=== PATIENT | female | born 1980 | race Caucasian/White ===

== ENCOUNTER 2016-11-23 18:10 | Emergency (ER) | payer MEDICAID ==
[~2016-11-23] VITALS: Ht 160 cm; Wt 53.0 kg
[~2016-11-23 18:10] MED LIST: ACET1TAB40 PO
[2016-11-23 18:12] VITALS: Ht 160 cm; Wt 53.0 kg
[2016-11-23 19:06] LABS: ADD SCAN DIFF NO
[2016-11-23 19:09] LABS: BASOPHILS % 0.4 % (0.0-2.0); EOSINOPHILS # 0.1 10^3/ul (0.0-0.5); EOSINOPHILS % 1.6 % (0.0-7.0); HEMATOCRIT 43.5 % (37.0-47.0); HEMOGLOBIN 13.8 g/dl (12.0-16.0); LYMPHOCYTES # 2.4 10^3/ul (0.8-2.9); LYMPHOCYTES % 35.3 % (15.0-51.0); MEAN CORPUSCULAR HEMOGLOBIN 27.9 pg (29.0-33.0); MEAN CORPUSCULAR HGB CONC 31.7 g/dl (32.0-37.0); MEAN CORPUSCULAR VOLUME 88.1 fl (82.0-101.0); MEAN PLATELET VOLUME 10.9 fl (7.4-10.4); MONOCYTE # 0.5 10^3/ul (0.3-0.9); NEUTROPHIL # 3.7 10^3/ul (1.6-7.5); NEUTROPHILS % 54.6 % (39.0-77.0); PLATELET COUNT 244 10^3/UL (140-415); RED BLOOD COUNT 4.94 10^6/ul (4.20-5.40); RED CELL DISTRIBUTION WIDTH 12.7 % (11.5-14.5); WHITE BLOOD COUNT 6.7 10^3/ul (4.8-10.8)
[2016-11-23 19:22] LABS: ADD UMIC YES; UR BILIRUBIN (Dip) NEGATIVE (NEGATIVE); UR BLOOD (Dip) 3+ (NEGATIVE); UR COLOR LT. YELLOW (YELLOW); UR GLUCOSE (Dip) NEGATIVE (NEGATIVE); UR KETONES (Dip) NEGATIVE (NEGATIVE); UR LEUKOCYTE ESTERASE (Dip) NEGATIVE (NEGATIVE); UR NITRITE (Dip) NEGATIVE (NEGATIVE); UR TOTAL PROTEIN (Dip) NEGATIVE (NEGATIVE); UR UROBILINOGEN (Dip) 0.2 E.U./dL (0.1-1.0)
[2016-11-23 19:26] LABS: ALBUMIN 5.1 g/dl (3.3-4.9); ALBUMIN/GLOBULIN RATIO 1.75; BILIRUBIN,INDIRECT 0.4 mg/dl (0-1.1); BILIRUBIN,TOTAL 0.4 mg/dl (0.2-1.3); CALCIUM 9.6 mg/dl (8.4-10.2); CREATININE 0.76 mg/dl (0.44-1.00); POTASSIUM 3.7 mmol/L (3.5-5.1)
[2016-11-23 19:33] LABS: D-DIMER < 220.00 ng/ml (<460)
[2016-11-23 19:35] LABS: UR CLARITY HAZY (CLEAR)
--- NOTE | 2016-11-23 19:38 | RADRPT ---
PROCEDURE: XR Chest. CLINICAL INDICATION: chest pain, abdominal pain TECHNIQUE: Single frontal view of the chest was obtained COMPARISON: None FINDINGS: The heart and mediastinum are within normal limits. The lungs are clear. There is no pleural effusion or pneumothorax. RPTAT: AA IMPRESSION: No acute disease. .Nick Brownlee MD, MD Date Time Electronically viewed and signed by .Nick Brownlee MD, on 11/23/2016 19:38 .S/
[2016-11-23] MEDS ORDERED: SOD CHLORIDE 0.9% 100 ML ONE (19:41)
[2016-11-23] MEDS ORDERED: IOHEXOL 300MG/ML 150 ML BTL ONE (19:41)
[2016-11-23 19:43] LABS: UR SQUAMOUS EPITHELIAL CELL MODERATE; URINE RBCS 0-2 /HPF (0)
[2016-11-23 19:44] LABS: BACTERIA,URINE FEW
--- NOTE | 2016-11-23 20:07 | RADRPT ---
PROCEDURE: CT Chest. CLINICAL INDICATION: Dyspnea and shortness of breath TECHNIQUE: CT scan of the chest with contrast was performed on the [facility]umetric [address] [facility] The patient was scanned following the uncomplicated intravenous administration of 100 cc of Omn ipaque-300 intravenous contrast. Coronal and sagittal reformatted images were obtained from the axia l source images. The CTDI is 5.25 mGy and the DLP is 374.11 mGy-cm. COMPARISON: None. FINDINGS: The lungs are clear. No focal opacification, effusion, pneumothorax, edema, or nodules are seen. T here is no acute infiltrate. The mediastinum is unremarkable without evidence for mass or lymphaden opathy. The vascular structures of the mediastinum are normal in course and caliber. The heart siz e is normal without evidence for pericardial thickening or effusion. The axillary regions, subpecto ral regions, and supraclavicular regions are all unremarkable. The osseous structures are intact. N o osteolytic or osteoblastic lesion is detected. IMPRESSION: 1. Unremarkable CT scan of the chest. 2. No mass, lymphadenopathy, or focal acute infiltrate is identified. RPTAT: HPNM Physician Doris Date Time Electronically viewed and signed by Physician Doris on 11/23/2016 20:06 /
--- NOTE | 2016-11-23 22:59 | RADRPT ---
PROCEDURE: CT abdomen and pelvis with intravenous contrast. CLINICAL INDICATION: Pain. TECHNIQUE: CT of the abdomen/pelvis was performed utilizing axial images with reconstructions in s agittal and coronal planes after uneventful administration of 100 cc Omnipaque 300. The administered radiation dose is CTDI 5.3 mGy, DLP 374 mGy-cm. COMPARISON: 06/24/2015 FINDINGS: Visualized Chest: Is refer to the separately dictated examination of the chest. Abdomen: The liver, spleen, pancreas, gallbladder,and adrenal glands are unremarkable. The kidneys are without hydronephrosis. No definite urinary calculi are seen. There is no evidence of bowel obstruction. The appendix is normal. No intra-abdominal free air is seen. There is no evidence of intra-abdominal adenopathy or free fluid. Pelvis: There is no evidence of pelvic adenopathy. The uterus and ovaries are without enlargement. The uri nary bladder is unremarkable. There is a small amount of pelvic free fluid. Osseous structures: Unremarkable. IMPRESSION: No acute findings. RPTAT: HIKT .Oswaldo Calloway MD, Date Time Electronically viewed and signed by .Oswaldo Calloway MD, on 11/23/2016 22:59 .T/
[2016-11-23] MEDS ORDERED: RANI150T9 PO (23:06)
[2016-11-23] MEDS ORDERED: OMEP20CA16 PO (23:06)
--- NOTE | 2016-11-23 23:10 | ERD ---
ER Documentation Chief Complaint Date/Time DATE: 11/23/16 TIME: 23:08 Chief Complaint Complains of SOB x 3 weeks HPI 32-year-old female otherwise healthy complains of intermittent shortness breath associated with eating for the past 3 weeks. She states that she is able to feed no more than upon fall, and reports epigastric abdominal pain that goes to her chest, and has become full easily. She states that it has made her feel short of breath. She denies any fevers, chills, vomiting. She denies night sweats or unintended weight loss. ROS All systems reviewed and are negative except as per history of present illness. Medications Home Meds Active Scripts Omeprazole* (Omeprazole*) 20 Mg Capsule.dr, 20 MG PO BID, #60 Prov:LEANDRO BARRAGAN PA-C 11/23/16 Ranitidine Hcl* (Zantac*) 150 Mg Tablet, 150 MG PO BID Y for EPIGASTRIC PAIN, # 30 TAB Prov:LEANDRO BARRAGAN PA-C 11/23/16 Acetaminophen-Codeine* (Acetaminophen-Cod #3*) 300-30 Mg Tab, 1 TAB PO Q4H Y for PAIN, #15 TAB Prov:RANDEE AVITIA NP 06/24/15 Allergies Allergies: Coded Allergies: No Known Allergy (Unverified , 11/23/16) PMhx/Soc Medical and Surgical Hx: pt denies Medical Hx, pt denies Surgical Hx Hx Alcohol Use: No Hx Substance Use: No Hx Tobacco Use: No Physical Exam Vitals Vital Signs Date Time Temp Pulse Resp B/P Pulse Ox O2 Delivery O2 Flow Rate FiO2 11/23/16 18:12 98.0 95 20 139/65 98 Physical Exam General: Well-developed, well-nourished. The patient appears in no acute distress. HEENT: Head is normocephalic, atraumatic. No scleral icterus. Pupils are equal , round, and reactive. Oral mucous membranes are moist. No pharyngeal erythema. , No trismus, no voice changes or drooling. Throat is clear. Neck: Supple. Nontender. Lungs: Clear to auscultation. Normal air movement. Heart: Regular rate and rhythm. S1 and S2 are normal. No murmurs, gallops, or rubs. Abdomen: Soft, nontender, nondistended. Bowel sounds are normoactive. Extremities: No clubbing or cyanosis. Normal pulses. Moving extremities x 4. No weakness. Neurologic: Alert and oriented 3. No focal deficits. Skin: Normal turgor. No rash or lesions. Result Diagram: 11/23/16189911/23/161899 Results 24 hrs Laboratory Tests Test 11/23/16 19:00 White Blood Count 6.710^3/ul Red Blood Count 4.9410^6/ul Hemoglobin 13.8g/dl Hematocrit 43.5% Mean Corpuscular Volume 88.1fl Mean Corpuscular Hemoglobin 27.9pg Mean Corpuscular Hemoglobin Concent 31.7g/dl Red Cell Distribution Width 12.7% Platelet Count 88672^3/UL Mean Platelet Volume 10.9fl Neutrophils % 54.6% Lymphocytes % 35.3% Monocytes % 8.0% Eosinophils % 1.6% Basophils % 0.4% Nucleated Red Blood Cells % 0.0/100WBC Neutrophils # 3.710^3/ul Lymphocytes # 2.410^3/ul Monocytes # 0.510^3/ul Eosinophils # 0.110^3/ul Basophils # 0.010^3/ul Nucleated Red Blood Cells # 0.010^3/ul D-Dimer < 220.00ng/ml D-Dimer Comment Urine Color LT. YELLOW Urine Clarity HAZY Urine pH 7.0 Urine Specific [place] <=1.005 Urine Ketones NEGATIVE Urine Nitrite NEGATIVE Urine Bilirubin NEGATIVE Urine Urobilinogen 0.2 E.U./dL Urine Leukocyte Esterase NEGATIVE Urine Microscopic RBC 0-2/HPF Urine Microscopic WBC 5-10/HPF Urine Squamous Epithelial Cells MODERATE Urine Amorphous Urates MODERATE Urine Bacteria FEW Urine Hemoglobin 3+ Urine Glucose NEGATIVE% Urine Total Protein NEGATIVE Sodium Level 142mmol/L Potassium Level 3.7mmol/L Chloride Level 106mmol/L Carbon Dioxide Level 26mmol/L Anion Gap 14 Blood Urea Nitrogen 16mg/dl Creatinine 0.76mg/dl Glucose Level 88mg/dl Calcium Level 9.6mg/dl Total Bilirubin 0.4mg/dl Direct Bilirubin 0.00mg/dl Indirect Bilirubin 0.4mg/dl Aspartate Amino Transf (AST/SGOT) 21IU/L Alanine Aminotransferase (ALT/SGPT) 28IU/L Alkaline Phosphatase 49IU/L Total Protein 8.0g/dl Albumin 5.1g/dl Globulin 2.90g/dl Albumin/Globulin Ratio 1.75 Lipase 158U/L Patient: MIKE MCCORMICK : 1980 Age: 35 Sex: F MR #: [id number] DOS: 11/23/161839 Ordering MD: LEANDRO BARRAGAN PA-C Location: [facility] Room/Bed: PROCEDURE: CT abdomen and pelvis with intravenous contrast. CLINICAL INDICATION: Pain. TECHNIQUE: CT of the abdomen/pelvis was performed utilizing axial images with reconstructions in sagittal and coronal planes after uneventful administration of 100 cc Omnipaque 300. The administered radiation dose is CTDI 5.3 mGy, DLP 374 mGy-cm. COMPARISON: 06/24/2015 FINDINGS: Visualized Chest: Is refer to the separately dictated examination of the chest. Abdomen: The liver, spleen, pancreas, gallbladder,and adrenal glands are unremarkable. The kidneys are without hydronephrosis. No definite urinary calculi are seen. There is no evidence of bowel obstruction. The appendix is normal. No intra- abdominal free air is seen. There is no evidence of intra-abdominal adenopathy or free fluid. Pelvis: There is no evidence of pelvic adenopathy. The uterus and ovaries are without enlargement. The urinary bladder is unremarkable. There is a small amount of pelvic free fluid. Osseous structures: Unremarkable. IMPRESSION: No acute findings. RPTAT: HIKT .Oswaldo Calloway MD, Date Time Electronically viewed and signed by .Oswaldo Calloway MD, on 11/23/2016 22:59 .T/ CC: LEANDRO BARRAGAN PA-C DIAGNOSTIC IMAGING REPORT Patient: MIKE MCCORMICK : 1980 Age: 35 Sex: F MR #: [id number] DOS: 11/23/161839 Ordering MD: LEANDRO BARRAGAN PA-C Location: [facility] Room/Bed: PROCEDURE: CT Chest. CLINICAL INDICATION: Dyspnea and shortness of breath TECHNIQUE: CT scan of the chest with contrast was performed on the [employer] volumetric [address] scanner. The patient was scanned following the uncomplicated intravenous administration of 100 cc of Omnipaque-300 intravenous contrast. Coronal and sagittal reformatted images were obtained from the axial source images. The CTDI is 5.25 mGy and the DLP is 374.11 mGy-cm. COMPARISON: None. FINDINGS: The lungs are clear. No focal opacification, effusion, pneumothorax, edema, or nodules are seen. There is no acute infiltrate. The mediastinum is unremarkable without evidence for mass or lymphadenopathy. The vascular structures of the mediastinum are normal in course and caliber. The heart size is normal without evidence for pericardial thickening or effusion. The axillary regions, subpectoral regions, and supraclavicular regions are all unremarkable. The osseous structures are intact. No osteolytic or osteoblastic lesion is detected. IMPRESSION: 1. Unremarkable CT scan of the chest. 2. No mass, lymphadenopathy, or focal acute infiltrate is identified. RPTAT: HPNM Physician Doris Date Time Electronically viewed and signed by Physician Doris on 11/23/2016 20 :06 / CC: LEANDRO BARRAGAN PA-C Patient: MIKE MCCORMICK : 1980 Age: 35 Sex: F MR #: [id number] DOS: 11/23/16 1840 Ordering MD: LEANDRO BARRAGAN PA-C Location: E Room/Bed: PROCEDURE: XR Chest. CLINICAL INDICATION: chest pain, abdominal pain TECHNIQUE: Single frontal view of the chest was obtained COMPARISON: None FINDINGS: The heart and mediastinum are within normal limits. The lungs are clear. There is no pleural effusion or pneumothorax. RPTAT: AA IMPRESSION: No acute disease. .Nick Brownlee MD, Date Time Electronically viewed and signed by .Nick Brownlee MD, MD on 11/23/2016 19: 38 .S/ CC: LEANDRO BARRAGAN PA-C Procedures/MDM MDM: 32-year-old female comes in with a history of abdominal fullness, feelings of shortness breath associated with eating. Patient had full workup here including labs, CT scan of abdomen, pelvis and chest were all negative. There is no evidence of any masses. She at this time does not show any signs of respiratory distress. I have advised her to follow-up outpatient, possibly rule out GERD, versus gastritis versus H. pylori versus hernia. Departure Diagnosis: Primary Impression: Abdominal pain Condition: Good Patient Instructions: Abdominal Pain Referrals: NATHANAEL PRESLEY MD,JULEE MERIDA,SAHARA YBARRA,LUZ BOWDEN M.D., DAVID Q. MD [facility] YOU HAVE RECEIVED A MEDICAL SCREENING EXAM AND THE RESULTS INDICATE THAT YOU DO NOT HAVE A CONDITION THAT REQUIRES URGENT TREATMENT IN THE EMERGENCY DEPARTMENT. FURTHER EVALUATION AND TREATMENT OF YOUR CONDITION CAN WAIT UNTIL YOU ARE SEEN IN YOUR DOCTORS OFFICE WITHIN THE NEXT 1-2 DAYS. IT IS YOUR RESPONSIBILITY TO MAKE AN APPOINTMENT FOR FOLOW-UP CARE. IF YOU HAVE A PRIMARY DOCTOR --you should call your primary doctor and schedule an appointment IF YOU DO NOT HAVE A PRIMARY DOCTOR YOU CAN CALL OUR PHYSICIAN REFERRAL HOTLINE AT IF YOU CAN NOT AFFORD TO SEE A PHYSICIAN YOU CAN CHOSE FROM THE FOLLOWING [facility] CLINICS [facility] [address] [address] [facility] [address] [facility] [address] [facility] [address] [facility] [address] [facility]. [facility]. [address] [facility]. [facility] YOU HAVE RECEIVED A MEDICAL SCREENING EXAM AND THE RESULTS INDICATE THAT YOU DO NOT HAVE A CONDITION THAT REQUIRES URGENT TREATMENT IN THE EMERGENCY DEPARTMENT. FURTHER EVALUATION AND TREATMENT OF YOUR CONDITION CAN WAIT UNTIL YOU ARE SEEN IN YOUR DOCTORS OFFICE WITHIN THE NEXT 1-2 DAYS. IT IS YOUR RESPONSIBILITY TO MAKE AN APPOINTMENT FOR FOLOW-UP CARE. IF YOU HAVE A PRIMARY DOCTOR --you should call your primary doctor and schedule and appointment IF YOU DO NOT HAVE A PRIMARY DOCTOR YOU CAN CALL OUR PHYSICIAN REFERRAL HOTLINE AT . IF YOU CAN NOT AFFORD TO SEE A PHYSICIAN YOU CAN CHOSE FROM THE FOLLOWING [facility] INSTITUTIONS: [facility] [address] [place] [address] [facility] [address] [place] [address] [facility] [address] [place] [address] [facility] URGENT CARE/SPECIALTIES Additional Instructions: GASTROENTEROLOGY SPECIALIST: YOU HAVE A MEDICAL CONDITION WHICH REQUIRES YOU TO SEE A SPECIALIST WITHIN THE NEXT 1-2 DAYS. PLEASE FOLLOW UP WITH YOUR PRIMARY PHYSICIAN FOR REFFERAL.IF YOU DO NOT HAVE A PRIMARY CARE PHYSICIAN AND/ OR YOU CAN NOT AFFORD TO SEE A PHYSICIAN THE FOLLOWING RESOURCES HAVE BEEN SUPPLIED TO YOU. IT IS YOUR RESPONSIBILITY TO BE SEEN BY THE SPECIALIST LEANDRO BARRAGAN PA-C Nov 23, 2016 23:10
[2016-11-23 23:15] VITALS: BP 134/92; PULSE 74; RESP 20; TEMP 98.6
== END 2016-11-23 23:17 | disposition home or self-care (01) ==
LOC: FTE 18:10
DX: R10.13 Epigastric pain (principal); R10.2 Pelvic and perineal pain
CPT/HCPCS: 71010; 71260; 74177; 80053; 81001; 83690; 85025; 85378; 93005; Q9967; Z7610; 36415